=== PATIENT | female | born 1950 | race Caucasian/White ===

== ENCOUNTER 2017-01-24 15:00 | Emergency (ER) | payer MEDICARE ==
[~2017-01-24] VITALS: Ht 172.7 cm; Wt 53.0 kg
[2017-01-24] MEDS ORDERED: SODIUM CHLORIDE FLUSH 10ML SYR IVF ONE (15:30)
[2017-01-24 15:48] LABS: HEMATOCRIT 25.7 % (34.6-47.8); HEMOGLOBIN 8.5 g/dL (11.7-16.4)
[2017-01-24 15:59] LABS: ASPARTATE AMINO TRANSFERASE 109 U/L (15-37); BLOOD UREA NITROGEN 31 mg/dL (7-18)
[2017-01-24 17:23] VITALS: BP 134/71
[2017-01-24 17:39] VITALS: BP 140/78
[2017-01-24 19:01] VITALS: BP 130/79
== END 2017-01-24 19:03 | disposition home or self-care (01) ==
LOC: ED 18:45
DX: D64.9 Anemia, unspecified (principal); E03.9 Hypothyroidism, unspecified; Z88.8 Allergy status to other drugs, medicaments and biological substances
CPT/HCPCS: 36415; 80053; 85025; 86850; 86900; 86923; 99285; P9016